=== PATIENT | male | born 1955 | race Caucasian/White ===

== ENCOUNTER 2018-10-29 09:09 | Emergency (ER) | payer OTHER ==
--- NOTE | 2018-10-29 09:50 | ED Physician Documentation ---
PD HPI ABD PAIN - Stated complaint Stated Complaint: ABD PX - Chief complaint Chief Complaint: Abd Pain - History obtained from History obtained from: Patient - History of Present Illness Timing - onset: How many hours ago (2) Timing - duration: Hours (2) Timing - details: Abrupt onset Quality: Pain Location: Periumbilical Radiation: Left flank Associated symptoms: Nausea. No: Vomiting Similar symptoms before: Has not had sx before - Additional information Additional information: The patient is a 63-year-old male who presents with periumbilical abdominal pain radiating to his left flank. The pain started suddenly about 2 hours prior to arrival. He reports associated nausea, without vomiting. He denies fever or dysuria. He denies history of similar symptoms in the past. Review of Systems Constitutional: denies: Fever Nose: denies: Congestion Throat: denies: Sore throat Cardiac: denies: Chest pain / pressure Respiratory: denies: Dyspnea, Cough GI: reports: Abdominal Pain, Nausea. denies: Vomiting, Diarrhea : denies: Dysuria Skin: denies: Rash Musculoskeletal: reports: Back pain (left flank) Neurologic: denies: Headache PD PAST MEDICAL HISTORY - Past Medical History Cardiovascular: None Respiratory: None Neuro: None Endocrine/Autoimmune: None GI: GERD - Present Medications Home Medications: Ambulatory Orders Medication Instructions Recorded Confirmed Allopurinol [Zyloprim] 300 mg ORAL DAILY 10/29/18 10/29/18 Naproxen 375 mg PO 10/29/18 Omeprazole 40 mg PO 10/29/18 - Allergies Allergies/Adverse Reactions: Allergies Allergy/AdvReac Type Severity Reaction Status Date / Time ampicillin Allergy Hives Verified 10/29/18 09:24 Penicillins Allergy Hives Verified 10/29/18 09:24 - Social History Does the pt smoke?: No Smoking Status: Never smoker PD ED PE NORMAL - Vitals Vital signs reviewed: Yes (hypertensive) - General General: Alert and oriented X 3, Well developed/nourished - HEENT HEENT: Atraumatic, Moist mucous membranes, Pharynx benign - Neck Neck: No adenopathy, No JVD - Cardiac Cardiac: RRR - Respiratory Respiratory: No respiratory distress, Clear bilaterally - Abdomen Abdomen: Normal bowel sounds, Soft, Other (Tenderness to palpation in the supraumbilical region, with possible small hernia. There is currently no protrusion. Abdomen is otherwise benign.) - Back Back: No CVA TTP, No spinal TTP - Derm Derm: No rash - Extremities Extremities: No edema, No calf tenderness / cord - Neuro Neuro: Alert and oriented X 3, No motor deficit, Normal speech Results - Vitals Vitals: Oxygen O2 Source Room air - Labs Labs: Laboratory Tests 10/29/18 10/29/18 10/29/18 09:36 09:54 09:54 WBC 8.8 RBC 4.78 Hgb 15.2 Hct 44.9 MCV 93.9 MCH 31.8 H MCHC 33.9 RDW 13.3 Plt Count 207 MPV 11.1 Neut # (Auto) 4.9 Lymph # (Auto) 3.1 [place] # (Auto) 0.6 Eos # (Auto) 0.1 Baso # (Auto) 0.0 Absolute Nucleated RBC 0.00 Nucleated RBC % 0.0 Sodium 139 Potassium 4.5 Chloride 102 Carbon Dioxide 27 Anion Gap 10.0 BUN 22 H Creatinine 1.1 Estimated GFR (MDRD) 68 L Glucose 110 H Calcium 9.5 Total Bilirubin 0.9 AST 24 ALT 38 Alkaline Phosphatase 82 Total Protein 7.7 Albumin 4.5 Globulin 3.2 Albumin/Globulin Ratio 1.4 Lipase 32 Urine Color YELLOW Urine Clarity CLEAR Urine pH 7.0 Ur Specific [place] 1.010 Urine Protein NEGATIVE Urine Glucose (UA) NEGATIVE Urine Ketones NEGATIVE Urine Occult Blood NEGATIVE Urine Nitrite NEGATIVE Urine Bilirubin NEGATIVE Urine Urobilinogen 0.2 (NORMAL) Ur Leukocyte Esterase NEGATIVE Ur Microscopic Review NOT INDICATED Urine Culture Comments NOT INDICATED - Rads (name of study) Periumbilical U/S Radiology: Prelim report reviewed, See rad report (There is a nonreducible fat-containing umbilical hernia measuring 15 mm at the neck.) PD MEDICAL DECISION MAKING - ED course Complexity details: reviewed results, re-evaluated patient, considered differential, d/w patient ED course: The patient's presentation is significant for a fat-containing periumbilical hernia. While the hernia was nonreproducible during ultrasound examination, the patient's hernia subsequently reduced after returning from ultrasound. His pain subsequently resolved. CBC is normal with a white count of 8.8. I discussed his presentation with Dr. Morelos who will see him and outpatient follow-up. I discussed with the patient the diagnosis, the importance of follow-up with general surgery, as well as potentially worrisome signs or symptoms that should prompt reevaluation in the emergency department. Departure - Departure Disposition: 01 Home, Self Care Clinical Impression: Periumbilical hernia Condition: Stable Instructions: ED Abdominal Pain Unkn Cause Follow-Up: Mya Cannon MD [Provider Admit Priv/Credential] - Comments: Avoid strenuous lifting. Follow-up with general surgeon regarding your periumbilical hernia. Call to schedule an appointment. Return to the emergency department if you develop increasing abdominal pain, persistent vomiting, fever, or otherwise worsening symptoms. Discharge Date/Time: 10/29/18 13:49
[2018-10-29 09:57] LABS: BILIRUBIN,URINE NEGATIVE (NEGATIVE); GLUCOSE, URINE (UA) NEGATIVE (NEGATIVE); KETONES,URINE (UA) NEGATIVE (NEGATIVE); LEUKOCYTE ESTERASE, URINE NEGATIVE (NEGATIVE); NITRITE,URINE NEGATIVE (NEGATIVE); OCCULT BLOOD,URINE NEGATIVE (NEGATIVE); PROTEIN,URINE NEGATIVE (NEGATIVE); UROBILINOGEN,URINE 0.2 (NORMAL) E.U./dL (NORMAL)
[2018-10-29 10:00] LABS: BASOPHILS % (AUTO) 0.5 %; EOSINOPHILS # (AUTO) 0.1 10^3/uL (0.0-0.7); EOSINOPHILS % (AUTO) 1.3 %; HGB - HEMOGLOBIN 15.2 g/dL (14.0-18.0); LYMPHOCYTES # (AUTO) 3.1 10^3/uL (1.5-3.5); LYMPHOCYTES % (AUTO) 35.4 %; MEAN CORPUSCULAR HEMOGLOBIN 31.8 pg (27.0-31.0); MEAN CORPUSCULAR HGB CONC 33.9 g/dL (32.0-36.0); MEAN CORPUSCULAR VOLUME 93.9 fL (80.0-94.0); MEAN PLATELET VOLUME 11.1 fL (7.4-11.4); MONOCYTES # (AUTO) 0.6 10^3/uL (0.0-1.0); MONOCYTES % (AUTO) 7.1 %; NEUTROPHILS # (AUTO) 4.9 10^3/uL (1.5-6.6); NEUTROPHILS % (AUTO) 55.2 %; PLT - PLATELET COUNT 207 10^3/uL (130-450); RED BLOOD COUNT 4.78 10^6/uL (4.70-6.10); RED CELL DISTRIBUTION WIDTH 13.3 % (12.0-15.0); WHITE BLOOD COUNT 8.8 x10^3/uL (4.8-10.8)
[2018-10-29 10:01] LABS: CLARITY,URINE CLEAR (CLEAR)
[2018-10-29 10:13] LABS: ALBUMIN 4.5 g/dL (3.2-5.5); ALBUMIN/GLOBULIN RATIO 1.4 (1.0-2.2); BILIRUBIN,TOTAL 0.9 mg/dL (0.2-1.0); CALCIUM 9.5 mg/dL (8.5-10.3); CREATININE 1.1 mg/dL (0.6-1.2); TOTAL PROTEIN 7.7 g/dL (6.7-8.2)
--- NOTE | 2018-10-29 10:40 | Ultrasound Report ---
Reason: Supraumbilical tenderness, ?hernia. Procedure Date: 10/29/2018 Accession Number: [id number] / [id number] Procedure: US - Abdomen Limited CPT Code: FULL RESULT: EXAM: ABDOMEN ULTRASOUND LIMITED, RUQ EXAM DATE: 10/29/2018 10:31 AM. CLINICAL HISTORY: Supraumbilical tenderness, ?hernia. COMPARISON: None. TECHNIQUE: Real-time scanning was performed with static images obtained. FINDINGS: There is a nonreducible fat-containing umbilical hernia measuring 15 mm at the neck. IMPRESSION: There is a nonreducible fat-containing umbilical hernia measuring 15 mm at the neck. RADIA
[2018-10-29 13:50] VITALS: BP 148/87
== END 2018-10-29 13:49 | disposition home or self-care (01) ==
LOC: ED 09:09
DX: K42.9 Umbilical hernia without obstruction or gangrene (principal)
CPT/HCPCS: 36415; 76705; 80053; 81001; 81003; 83690; 85025; 87086; 99284

== ENCOUNTER 2018-12-11 09:20 | Day surgery (SDC) | payer OTHER ==
[2018-12-11] MEDS ORDERED: KETOROLAC 30 MG/ML VIAL IVP ONE (09:21)
[2018-12-11] MEDS ORDERED: PROPOFOL 200 MG/20 ML VIAL IVP ONE (09:21)
[2018-12-11] MEDS ORDERED: MIDAZOLAM 2 MG/2 ML VIAL IVP ONE (09:21)
[2018-12-11] MEDS ORDERED: DEXAMETHASONE 4 MG/ML VIAL IVP ONE (09:21)
[2018-12-11] MEDS ORDERED: ePHEDrine 50 MG/ML VIAL IVP ONE (09:21)
[2018-12-11] MEDS ORDERED: CEFAZOLIN SODIUM IN 0.9 % NACL 2 GM/100 ML BAG IV ONE (09:38)
[2018-12-11] MEDS ORDERED: LACTATED RINGERS 1,000 ML IV ONE ×3 (09:50→16:00)
--- NOTE | 2018-12-11 09:58 | ANESTHESIA ---
Pre-Anesthesia VS, & Labs - Diagnosis umbilical hernia - Procedure umbilical hernia repair Vital Signs: Temp Pulse Resp BP Pulse Ox 36.8 C 98 16 129/82 H 98 12/11/18 09:30 12/11/18 09:30 12/11/18 09:30 12/11/18 09:30 12/11/18 09:30 Height 6 ft 2 in Weight (kg) 123.1 kg Body Mass Index 34.7 - NPO >8 hours Home Medications and Allergies Allopurinol [Zyloprim] 300 mg ORAL DAILY 10/29/18 Naproxen 375 mg PO DAILY 10/29/18 Omeprazole 20 mg PO DAILY 10/29/18 Allergies/Adverse Reactions: Allergies Allergy/AdvReac Type Severity Reaction Status Date / Time ampicillin Allergy Hives Verified 10/29/18 09:24 Penicillins Allergy Hives Verified 10/29/18 09:24 Anes History & Medical History - Anesthetic History Anesthesia Complications: reports: No previous complications - Medical History Cardiovascular: reports: None Pulmonary: reports: None Gastrointestinal: reports: GERD (controlled on medication), Colon polyps Urinary: reports: None Neuro: reports: None Musculoskeletal: reports: Osteoarthritis, Chronic back pain Endocrine/Autoimmune: reports: None Blood Disorders: reports: None Skin: reports: None Smoking Status: Never smoker (quit chewing tobacco 20 years ago) Psychosocial: reports: No issues indicated - Surgical History General: Colonoscopy Orthopedic: Rotator cuff repair Exam General: Alert, Oriented x3, Cooperative, No acute distress Dental: WNL Mouth Openin Fingerbreadth Neck Mobility: Normal Mallampati classification: I Thyromental Distance: greater than 6 cm Respiratory: Lungs clear, Normal breath sounds, No respiratory distress, No accessory muscle use Cardiovascular: Regular rate, Normal S1, Normal S2, No murmurs Mental/Cognitive Status: Alert/Oriented X3, Normal for patient Plan Anesthesia Type: General Consent for Procedure(s) Verified and Reviewed: Yes Code Status: Attempt Resuscitation ASA classification: 2-Mild systemic disease Is this case an emergency?: No
[2018-12-11] MEDS: BUPIVACAINE 0.5% PF 30 ML VIAL ONE ×2 (12:46→14:01)
[2018-12-11] MEDS ORDERED: ONDANSETRON 4 MG/2 ML VIAL IVP PRN (14:17)
[2018-12-11] MEDS ORDERED: HYDROmorphone 0.5 MG/0.5 ML SYRINGE IVP PRN (14:17)
[2018-12-11] MEDS ORDERED: HYDROcod/ACETAM 5/325 MG TABLET PO PRN (14:17)
--- NOTE | 2018-12-11 14:23 | OPERATIVE REPORT ---
Operative Report - General Planned Procedure: Umbilical herniorrhaphy and left inguinal herniorrhaphy Pre-Op Diagnosis: Umbilical hernia and left inguinal hernia Procedure Performed: Umbilical herniorrhaphy with mesh Left direct inguinal herniorrhaphy with mesh and excision cord lipoma Post Op Diagnosis: As above - Procedure Note Primary Surgeon: Primo Finney MD Anesthesia Provider: Jose Cortez CRNA Anesthesia Technique: General LMA, Local (30 mL of half percent Marcaine) IV Fluids (mL): 1,200 Estimated Blood Loss (mL): 10 Drain/Tube Type: Other (None.) Complications: None. - Other Other Information/Narrative: OPERATIVE DESCRIPTION/REPORT: After verbal and written informed consent was obtained detailing the risks of infection, bleeding requiring transfusion with its risks, nerve injury, and , and after I met with the patient confirming the surgery and the site of the surgery, the patient was brought to the operative suite and placed supine on the operating table. Great care was taken to avoid pressure points to prevent pressure necrosis or nerve injury. Monitoring devices were applied along with TEDs and pneumatic compressive stockings (to prevent DVT). The patient received preoperative antibiotics for surgical prophylaxis. Jose Cortez CRNA sedated and anesthetized the patient for the entire procedure. The patient was prepped and draped in the usual sterile manner. With the patient draped my initials were clearly visible. A "time in" then confirmed that the patient was identified with 3 identifiers (name, birthdate and medical record number), the history and physical was in the chart, the signed consent confirming the procedure was in the chart, the patient was in the correct position, the aforementioned prophylactic measures were in place or given, we had the correct personnel and equipment to complete the procedure and that anesthesia, surgery and nursing were given an opportunuty to express any concerns. With the agreement of everyone in the room, we proceeded with the operation. A standard curvilinear umbilical incision was made and dissection was carried down to the hernia sac using a combination of Metzenbaum scissors and Bovie electrocautery. The sac was cleared of overlying adherent tissue, and the fascial defect was delineated. The fascia was cleared of any adherent tissue for a distance 1.5 cm from the defect. The sac was placed back into the abdomen. The defect was closed using a 1.[address] Hernia Patch (Lot# [id number], Ref# [id number], use by date 2020-06-21). This was secured to the fascia using interrupted 2-0 PDS sutures superiorly and inferiorly utilizing the straps and trimming the excess strap. Laterally I placed a 2 2-0 PDS sutures for additional support. The fascia was then sewn over the mesh again using a 2-0 P DS suture in a running fashion. The patient was then given an ``innie by suturing the back of the umbilicus to the fascia using a 2-0 Vicryl. Meticulous hemostasis was obtained using Bovie electrocautery. The skin incision was approximated with a running subcuticular 4-0 Monocryl. A standard LEFT inguinal incision was made and dissection was carried down to the external oblique aponeurosis using a combination of Metzenbaum scissors and Bovie electrocautery. The external oblique aponeurosis was cleared of overlying adherent tissue, and the external ring was delineated. The external oblique was the incised with a scalpel and this incision was carried out to the external ring using Metzenbaum scissors. Having exposed the inguinal canal, the cord structures were from the canal using blunt dissection, and a Shaun drain was placed around the cord structures at the level of the pubic tubercle. This [place] drain was then used to retract the cord structures as needed. Adherent cremasteric muscle was dissected free from the cord using Bovie electrocautery. The cord was then explored using a combination of sharp and blunt dissection, and no sac was found. Dissection along the cord structures found a vwey large lipoma that was dissected back to the internal ring, ligated with a 3-0 Vicryl, transected, the stump cauterized and allowed to retract back into the abdomen. A large Bard Perfix plug (Ref# [id number], Lot# [id number], use by date 2023-09-21) inserted into the internal ring. The plug was secured to the edge of the internal ring using interrupted 2-0 PDS sutures. The hernia was found coming from the floor of the inguinal canal medial to the inferior epigastric vessels. This was dissected back to the hernia opening. This permitted the floor of the inguinal canal to be repaired without the hernia in my way. The Perfix enlay patch was then placed on the floor of the inguinal canal and secured superiorly to the conjoined tendon and inferiorly to the shelving edge of [place]ouparts ligament using interrupted 2-0 PDS sutures. At the pubic tubercle a 2-0 PDS stitch was used to secure the mesh. The mesh was secured around the cord structures with a 2-0 PDS loosely thus creating a new internal ring. The Shaun drain was removed. The wound was then irrigated using sterile saline, and hemostasis was obtained using Bovie electrocautery. The incision in the external oblique was approximated using a 2-0 Vicryl in a running fashion, thus reforming the external ring. The skin and subcutaneous tissues at both incisions were injected with half percent Marcaine for long-term anesthetic control at both sites. The skin incision was approximated with 4-0 Monocryl in a subcuticular fashion. The skin was cleaned at both sites and Dermabond applied. At this point a time out was performed that confirmed that all the counts were correct, the procedure that was performed, the blood loss, the IV fluids administered, and the patients condition. A dressing was then applied. Gentle downward traction ensured that the testes were well seated in the scrotum. Having tolerated the procedure well, the patient was taken to recovery room in good and stable condition. [employer] disclaimer: This document was created in part using voice recognition technology. Because of the inherent limitations of the system ([employer] user manual states that the licensee understands that speech recognition is a statistical process and that recognition errors are inherent in the process), occasional same sounding word substitutions and grammatical errors do occur and persist despite proofreading. Please read this document for context.
[2018-12-11] MEDS ORDERED: fentaNYL 100 MCG/2 ML VIAL ONE (14:50)
[2018-12-11] MEDS ORDERED: HYDROcod/ACETAM 5/325 MG TABLET ONE (15:24)
[2018-12-11] MEDS ORDERED: ONDANSETRON 4 MG/2 ML VIAL ONE (15:52)
[2018-12-11 16:37] VITALS: BP 138/75
== END 2018-12-11 09:21 | disposition home or self-care (01) ==
LOC: SDS 09:20
PROVIDERS: ATTEND Surgery
PROC: 0VBG0ZZ Excision of Left Spermatic Cord, Open Approach (ICD-10-PCS; 2018-12-11)
PROC: 0WUF0JZ Supplement Abdominal Wall with Synthetic Substitute, Open Approach (ICD-10-PCS; principal; 2018-12-11 11:15)
PROC: 0YU60JZ Supplement Left Inguinal Region with Synthetic Substitute, Open Approach (ICD-10-PCS; 2018-12-11 11:15)
DX: K42.9 Umbilical hernia without obstruction or gangrene (principal); K40.90 Unilateral inguinal hernia, without obstruction or gangrene, not specified as recurrent; D17.6 Benign lipomatous neoplasm of spermatic cord; I10 Essential (primary) hypertension; Z87.891 Personal history of nicotine dependence
CPT/HCPCS: 49505; 49585; 55520; 93005; A9270; C1781; J0690; J7120

== ENCOUNTER 2021-06-05 10:15 | Outpatient (CLI) | payer OTHER ==
--- NOTE | 2021-06-05 14:25 | XRAY Report ---
PROCEDURE: Knee 4 View LT INDICATIONS: LEFT KNEE PAIN TECHNIQUE: 3 views of the left knee(s) were acquired. COMPARISON: None. FINDINGS: Bones: No fractures or dislocations. No suspicious bony lesions. Mild lateral and patellofemoral co mpartment osteoarthritis marginal osteophytosis. Moderate medial compartment osteoarthritis with deana inal osteophytosis and mild joint space narrowing. Soft tissues: No joint effusion. No suspicious soft tissue calcifications. IMPRESSION: Left knee tricompartmental osteoarthritis as described above. Reviewed by: Colleen Gan MD, PhD on 06/05/2021 2:23 PM PDT Approved by: Colleen Gan MD, PhD on 06/05/2021 2:23 PM PDT Station ID: [id number]
== END 2021-06-05 23:59 | disposition home or self-care (01) ==
LOC: DI.WOS 10:15
PROVIDERS: ATTEND Physician Assistant
DX: M17.12 Unilateral primary osteoarthritis, left knee (principal)

== ENCOUNTER 2022-05-01 15:34 | Outpatient (CLI) | payer MEDICARE, OTHER ==
--- NOTE | 2022-05-02 13:05 | Ultrasound Report ---
PROCEDURE: Testicle INDICATIONS: MASS IN SCROTUM TECHNIQUE: Real-time scanning was performed of the scrotum and testicles, with image documentation. Color and p ulse Doppler interrogation was performed of both testicles. COMPARISON: None. FINDINGS: Right: Testicle is normal in size at 3.4 x 2.3 x 2.9 cm, and homogenous in echotexture. Epididymis is normal in overall size and morphology. No hydrocele or varicoceles. Overlying scrotal skin is no rmal in thickness. Left: Testicle is normal in size at 3.5 x 2.6 x 2.7 cm, and homogeneous in echotexture. Epididymis is normal in overall size and morphology. A hydrocele is present. No varicoceles. Overlying scrotal skin is normal in thickness. Doppler: Color and pulse Doppler demonstrate normal and symmetric arterial flow in both testicles. No left inguinal hernia identified. IMPRESSION: 1. No testicular mass visualized. 2. No left inguinal hernia identified. 3. A left hydrocele is present. Reviewed by: Deondre Faustin MD on 05/02/2022 1:03 PM PST Approved by: Deondre Faustin MD on 05/02/2022 1:03 PM PST Station ID: [id number]
== END 2022-05-01 15:35 | disposition home or self-care (01) ==
LOC: DI 15:34
PROVIDERS: ATTEND Student in an Organized Health Care Education/Training Program
DX: N43.2 Other hydrocele (principal)

== ENCOUNTER 2022-11-18 08:00 | Outpatient (CLI) | payer MEDICARE, OTHER ==
--- NOTE | 2022-11-18 15:47 | XRAY Report ---
PROCEDURE: Knee 4 View BILAT INDICATIONS: BILAT KNEE PAIN TECHNIQUE: 4 views of the bilateral knee(s) were acquired. COMPARISON: None. FINDINGS: Bones: No fractures or dislocations. No suspicious bony lesions. Mild left-sided patella heather. Tr icompartmental joint space narrowing with associated osteophytosis. Soft tissues: Small bilateral knee joint effusions. No suspicious soft tissue calcifications or mass es. IMPRESSION: Mild to moderate tricompartmental osteoarthritis. Kellgren-Quinten scale of osteoarthritis: 2. Mild left-sided patella heather. Small knee joint effusions. Reviewed by: Jose Gee on 11/18/2022 3:45 PM PDT Approved by: Jose Gee on 11/18/2022 3:45 PM PDT Station ID: [id number]
== END 2022-11-18 23:59 | disposition home or self-care (01) ==
LOC: DI.WOS 08:00
PROVIDERS: ATTEND Physician Assistant Surgical
DX: M17.0 Bilateral primary osteoarthritis of knee (principal); M25.462 Effusion, left knee; M25.461 Effusion, right knee